=== PATIENT | female | born 1980 | race Caucasian/White ===

== ENCOUNTER → 2017-10-01 09:29 | Outpatient (CLI) | payer OTHER, SELFPAY ==
[2017-10-01 11:26] LABS: Glucose GTT-Gestation. Fasting 84 mg/dL (<105)
[2017-10-01 11:36] LABS: Glucose GTT-Gestational 1 Hr 179 mg/dL (<190)
[2017-10-01 12:46] LABS: Glucose GTT-Gestational 2 Hr 134 mg/dL (<165)
[2017-10-01 13:41] LABS: Glucose GTT-Gestational 3 Hr 91 L (<145)
== END ==
PROVIDERS: Family Provider Family Medicine; PCP Family Medicine; Visit Provider Obstetrics & Gynecology
DX: Z34.83 Encounter for supervision of other normal pregnancy, third trimester (principal); R73.09 Other abnormal glucose
CPT/HCPCS: 36415; 82951; 82952